=== PATIENT | female | born 1975 | race Asian ===

== ENCOUNTER 2017-10-01 20:28 | Emergency (ER) | payer OTHER, SELFPAY ==
[2017-10-01 20:38] VITALS: BP 115/78; PULSE 84; RESP 20; TEMP 36.5; O2SAT 100; BMI 25.4
[2017-10-01 20:41] VITALS: BP 115/78; PULSE 84; RESP 20; TEMP 36.5; O2SAT 100; BMI 25.4
[2017-10-01] MEDS: PANTOPRAZOLE 40 MG VIAL IV (21:00)
[2017-10-01] MEDS: SODIUM CHLORIDE 0.9% 1,000 ML 1000 ML IV (21:00)
--- NOTE | 2017-10-01 21:02 | DI.US.S_ITS ---
PROCEDURE: US ABDOMEN COMPLETE INDICATIONS: Abdominal pain TECHNIQUE: Real-time scanning was performed of the abdominal and retroperitoneal organs, with image documentation. COMPARISON: None. FINDINGS: Liver: Liver is normal in size and homogeneous in echotexture. Gallbladder: There are multiple mobile gallstones measuring up to 1.5 cm. No gallbladder wall thickening, pericholecystic fluid or sonographic Hernandez's sign. Biliary ducts: Intrahepatic bile ducts are non-dilated. Extrahepatic bile duct caliber measures 4.7 mm. Normal is 6-7 mm or less in diameter, or 10 mm or less post-cholecystectomy. Pancreas: Not seen due to overlying bowel gas. Spleen: Spleen is normal in size and homogeneous in echotexture. Kidneys: Kidneys are normal in size and echotexture. Right kidney measures 10.5 cm long; left kidney measures 8.9 cm long. No hydronephrosis or nephrolithiasis. No solid masses. Aorta: Visualized aorta is normal in caliber at less than 3 cm. Iliacs: Proximal common iliac arteries are normal in caliber at less than 2.5 cm. IVC: Intrahepatic inferior vena cava is patent. Miscellaneous: No free abdominal fluid. IMPRESSION: 1. Cholelithiasis. No ultrasound findings to suggest acute cholecystitis. 2. Pancreas not seen due to overlying bowel gas. Dictated by: Tim Dodge M.D. on 10/01/2017 at 22:24 Approved by: Tim Dodge M.D. on 10/01/2017 at 22:26
--- NOTE | 2017-10-01 21:05 | ED_ITS ---
HPI - Abdominal Pain General Chief Complaint: Abdominal Pain Stated Complaint: STOMACH PAIN Time Seen by Provider: 10/01/17 20:50 History of Present Illness HPI narrative: Patient is a 42-year-old female who presents with epigastric pain which started around 2 o'clock this afternoon. It has progressively gotten worse. States right in her epigastric area. She had this once before and it went away on its own. Tonight she has tried Pepto-Bismol and some Tums without any relief. She denies any chest pain or shortness of breath. MD complaint: abdominal pain Related Data Previous Rx's Medication Instructions Recorded acyclovir 400 mg PO BID #120 tab 06/01/16 doxycycline hyclate 100 mg PO BID #22 tab 06/01/16 metronidazole [Metrogel Vaginal] 1 appl VAGINAL HS #70 gm 06/01/16 naproxen sodium 550 mg PO TID #21 tab 06/01/16 Allergies Allergy/AdvReac Type Severity Reaction Status Date / Time Penicillins [PENICILLINS] Allergy Unknown Verified 10/01/17 20:41 Review of Systems Review of Systems All systems reviewed & are unremarkable except as noted in HPI and below Constitutional Denies chills, Denies fever(s), Denies lethargy and Denies weakness Cardiovascular Denies chest pain, Denies irregular heart rhythm, Denies lightheadedness, Denies palpitations and Denies orthopnea Gastrointestinal Gastrointestinal: Reports as per HPI, Reports system reviewed and no additional complaints, except as docu and Reports abdominal pain (Epigastric pain) Musculoskeletal Denies back pain, Denies muscle weakness, Denies numbness and Denies tingling Neurologic Denies numbness, Denies tingling and Denies weakness Endocrine Denies palpitations [facility] Surgical History Status post dilation and curettage (06/01/14) Status post hysteroscopy (06/01/14) Status post laparoscopy (06/01/14) Social History Smoking Status: Never smoker Exam Initial Vital Signs Initial Vital Signs: Vital Signs Temperature 97.7 F 10/01/17 20:38 Pulse Rate 84 10/01/17 20:38 Respiratory Rate 20 10/01/17 20:38 Blood Pressure 115/78 10/01/17 20:38 Pulse Oximetry 100 10/01/17 20:38 Const General: cooperative, healthy appearing and acute distress (Appears in pain holding epigastric area) HENKY Head: normal to inspection Resp Effort & Inspection: normal respiratory effort, able to speak in complete sentences, no respiratory distress and no use of accessory muscles Auscultation: clear to auscultation bilaterally, no rales, no rhonchi and no wheezes Cardio Rate: regular rate Rhythm: regular rhythm Heart Sounds: no click, no gallops, no murmurs and no rubs Pulses: normal peripheral pulses GI Palpation: soft and tender (Epigastric area and mild right upper quadrant pain) Auscultation: normal bowel sounds Skin General: no rashes or lesions noted, No jaundice and No petechiae Neuro General: alert, oriented x3, gait normal and no focal motor deficits Speech: speech normal Course Orders Ordered: ED Orders 10/01/17 21:00 Comprehensive Metabolic Panel Stat Lipase Stat Troponin with CK Cardiac Panel Stat 10/01/17 21:02 US abdomen complete Stat 10/01/17 21:40 Complete Blood Count AUTO DIFF Stat Discontinued Medications Sodium Chloride (Normal Saline 0.9%) 1,000 mls @ 1,000 mls/hr IV CONT REGAN Last Infusion: 10/01/17 22:28 Dose: 1,000 mls/hr Admin: 10/01/17 21:00 Dose: 1,000 mls/hr Ketorolac Tromethamine (Toradol) 30 mg IV NOW ONE Stop: 10/01/17 21:27 Last Admin: 10/01/17 21:36 Dose: 30 mg Pantoprazole Sodium (Protonix) 40 mg IV NOW ONE Stop: 10/01/17 20:53 Last Admin: 10/01/17 21:00 Dose: 40 mg Vital Signs - 8 hr 10/01/17 20:38 10/01/17 20:41 10/01/17 21:30 Temperature 97.7 F 97.7 F Pulse Rate 84 84 70 Respiratory Rate 20 20 Blood Pressure 115/78 115/78 Blood Pressure [Right Arm] 117/64 Pulse Oximetry 100 100 100 10/01/17 22:30 Temperature Pulse Rate 83 Respiratory Rate Blood Pressure Blood Pressure [Right Arm] 94/50 L Pulse Oximetry 100 MDM - Abdominal Pain Lab Data Attestation: I reviewed the patient's lab results. Result diagrams: 10/01/17 21:40 10/01/17 21:00 Lab Results 10/01/17 10/01/17 10/01/17 Range/Units 21:00 21:00 21:40 WBC 12.4 H (4.5-11.0) X10^3/uL RBC 4.48 (4.0-5.2) X10^6/uL Hgb 12.2 (12.0-16.0) g/dL Hct 37.7 (36-46) % MCV 84.3 (80-100) fL MCH 27.3 (26-34) PG MCHC 32.4 (30-36) % RDW 15.4 H (11.6-14.8) % Plt Count 258 (150-400) X10^3/uL Neut % (Auto) 76.3 H (50-75) % Lymph % (Auto) 16.7 L (25-40) % [place] % (Auto) 4.5 (3-14) % Eos % (Auto) 1.9 L (2-4) % Baso % (Auto) 0.6 (0-2) % Neut # (Auto) 9500 H (9459-2530) /uL Sodium 139 (137-145) mmol/L Potassium 3.7 (3.4-5.1) mmol/L Chloride 101 (98-107) mmol/L Carbon Dioxide 25 (22-32) mmol/L BUN 13 (7-17) mg/dL Creatinine 0.50 L (0.52-1.04) mg/dL Estimated GFR > 60.0 (>60) mL/min BUN/Creatinine Ratio 26.0 H (6-22) Glucose 96 (70-100) mg/dL Calcium 9.3 (8.4-10.2) mg/dL Total Bilirubin 0.3 (0.2-1.3) mg/dL AST 22 (14-36) IU/L ALT 24 (9-52) IU/L Alkaline Phosphatase 81 (38-126) U/L Total Creatine Kinase 51 (30-135) U/L Troponin I < 0.012 (0.01-0.034) ng/mL Total Protein 7.7 (6.3-8.2) g/dL Albumin 4.2 (3.5-5.0) g/dL Globulin 3.5 (1.7-4.1) g/dL Albumin/Globulin Ratio 1.2 (1.0-2.8) Lipase 234 (23-300) U/L Imaging Data US - abdomen: Radiologist's impression: PROCEDURE: US ABDOMEN COMPLETE INDICATIONS: Abdominal pain TECHNIQUE: Real-time scanning was performed of the abdominal and retroperitoneal organs, with image documentation. COMPARISON: None. FINDINGS: Liver: Liver is normal in size and homogeneous in echotexture. Gallbladder: There are multiple mobile gallstones measuring up to 1.5 cm. No gallbladder wall thickening, pericholecystic fluid or sonographic Hernandez's sign. Biliary ducts: Intrahepatic bile ducts are non-dilated. Extrahepatic bile duct caliber measures 4.7 mm. Normal is 6-7 mm or less in diameter, or 10 mm or less post-cholecystectomy. Pancreas: Not seen due to overlying bowel gas. Spleen: Spleen is normal in size and homogeneous in echotexture. Kidneys: Kidneys are normal in size and echotexture. Right kidney measures 10.5 cm long; left kidney measures 8.9 cm long. No hydronephrosis or nephrolithiasis. No solid masses. Aorta: Visualized aorta is normal in caliber at less than 3 cm. Iliacs: Proximal common iliac arteries are normal in caliber at less than 2.5 cm. IVC: Intrahepatic inferior vena cava is patent. Miscellaneous: No free abdominal fluid. IMPRESSION: 1. Cholelithiasis. No ultrasound findings to suggest acute cholecystitis. 2. Pancreas not seen due to overlying bowel gas. Dictated by: Tim Dodge M.D. on 10/01/2017 at 22:24 Approved by: Tim Dodge M.D. on 10/01/2017 at 22:26 ECG Data Attestation: I personally reviewed and interpreted this ECG as follows: Prior ECG tracings: not available for review Interpretation: Normal sinus rhythm rate [address] changes artifact noted MDM Narrative Medical decision making narrative: Patient is doing much better after Toradol and Protonix. She has mild leukocytosis but no elevated bilirubin liver enzymes. She is noted to have multiple gallstones however no thickening of the wall or signs of common bile duct obstruction. Discussed have she will likely require surgery however not emergent at this time. Discussed with and patient warning signs and when to return to the ED. Discharge Plan Departure Patient Disposition: Home, Self-Care Clinical Impression: Cholelithiasis Discharge Date/Time: 10/01/17 23:00 Interventions: ED Discharge Assessment Last Done: 10/01/17 23:16 Instructions: DI for Gallstones Activity Restrictions/Additional Instructions: *You have been diagnosed with gallstones *What to do: You're gallbladder will likely require elective surgery at this time no emergent surgery needed. *Continue to take medications as directed *Follow up with your primary care provider in 2-3 days, call surgery Wednesday to schedule follow up appointment in 1-2 weeks *Return to ER if you should have increasing pain, fever or any new, worsening or concerning symptoms Prescriptions: No Action doxycycline hyclate 100 MG capsule 100 mg PO BID Qty: 22 RF: 1 metronidazole [Metrogel Vaginal] 0.75 % gel 1 appl Vaginal HS Qty: 70 RF: 0 acyclovir 400 MG tablet 400 mg PO BID Qty: 120 RF: 3 naproxen sodium 550 MG tablet 550 mg PO TID Qty: 21 RF: 3 Referrals: [facility] [Provider Group] Carley Dey MD [Physician] -
[2017-10-01 21:29] LABS: Creatine Kinase 51 U/L (30-135)
[2017-10-01 21:30] VITALS: BP 117/64; PULSE 70; O2SAT 100
[2017-10-01 21:35] LABS: Alanine Aminotransferase 24 IU/L (9-52); Albumin 4.2 g/dL (3.5-5.0); Albumin Globulin Ratio 1.2 (1.0-2.8); Alkaline Phosphatase 81 U/L (38-126); Aspartate Aminotransferase 22 IU/L (14-36); Bilirubin Total 0.3 mg/dL (0.2-1.3); Blood Urea Nitrogen 13 mg/dL (7-17); Calcium 9.3 mg/dL (8.4-10.2); Carbon Dioxide 25 mmol/L (22-32); Chloride 101 mmol/L (98-107); Estimated Glomerular Filt Rate > 60.0 mL/min (>60); Globulin 3.5 g/dL (1.7-4.1); Glucose 96 mg/dL (70-100); HEMOLYSIS < 15 (0-50); Lipase 234 U/L (23-300); Potassium 3.7 mmol/L (3.4-5.1); Sodium 139 mmol/L (137-145); Total Protein 7.7 g/dL (6.3-8.2)
[2017-10-01] MEDS: KETOROLAC 60 MG/2 ML VIAL 30 MG IV (21:36)
[2017-10-01 21:45] LABS: Troponin I < 0.012 ng/mL (0.01-0.034)
[2017-10-01 21:49] LABS: Add Manual Diff / Slide Review NO; Basophils Percent Auto 0.6 % (0-2); Eosinophils Percent Auto 1.9 % (2-4); Hematocrit 37.7 % (36-46); Hemoglobin 12.2 g/dL (12.0-16.0); Lymphocytes Percent Auto 16.7 % (25-40); Mean Corpuscular HGB Conc 32.4 % (30-36); Mean Corpuscular Hemoglobin 27.3 PG (26-34); Mean Corpuscular Volume 84.3 fL (80-100); Monocytes Percent Auto 4.5 % (3-14); Neutrophils Absolute Auto 9500 /uL (3000-5900); Neutrophils Percent Auto 76.3 % (50-75); Platelet Count 258 X10^3/uL (150-400); Red Blood Cell Count 4.48 X10^6/uL (4.0-5.2); Red Cell Distribution Width 15.4 % (11.6-14.8); White Blood Cell Count 12.4 X10^3/uL (4.5-11.0)
[2017-10-01 22:30] VITALS: BP 94/50; PULSE 83; O2SAT 100
== END 2017-10-01 23:00 | disposition home or self-care (01) ==
PROVIDERS: Emergency Provider Emergency Medicine
DX: K80.20 Calculus of gallbladder without cholecystitis without obstruction (principal)
CPT/HCPCS: 36591; 76700; 80053; 81003; 81025; 82550; 82553; 83690; 84484; 85025; 93005; 93010; 96361; 96374; 96375; 99283; 99285; C9113; J1885

== ENCOUNTER 2017-11-02 11:02 | Day surgery (SDC) | payer OTHER, SELFPAY ==
[2017-10-19 12:41] VITALS: BMI 25.5
[2017-11-02] VITALS (14 sets, daily range): BP systolic 100–118; BP diastolic 57–83; PULSE 82–107; RESP 10–20; TEMP 35.9–36.7; O2SAT 96–100; BMI 25.5
--- NOTE | 2017-11-02 | PATH_ITS ---
[facility] Accession Number: [id number] . 01 Material submitted: . GALLBLADDER AND CONTENTS . 02 Diagnosis: Gallbladder and Contents, Laparoscopic Cholecystectomy: Chronic cholecystitis, cholesterolosis, and cholelithiasis. MRV/11/04/2017 . 02 Electronically signed: . Anabela Lopez MD, Pathologist NPI- [id number] . 01 Gross description: . Received in formalin, labeled gallbladder and contents, is an intact gallbladder (length-6.6 cm, diameter-2.8 cm) with blue-green smooth shiny serosa and patent cystic duct. No lymph nodes are identified. The lumen contains dark green viscous bile and multiple bright yellow, bosselated, hard calculi (2.5 x 1.8 x 1.3 cm in aggregate) with clear colorless crystalline cut surfaces. The mucosa is green, smooth and flat. The wall is up to 0.1 cm thick. No nodules, masses or lesions are identified. Section code: (A1) cystic duct resection margin and two serial sections from the body; (A2) two longitudinal sections from the fundus. ([id number]) /MRV . 02 Pathologist provided ICD-10: K81.1 . 02 CPT . 062917 Performed at: 01 [facility] [address], [place], [place] [id number] MD Gordon Flores MD Phone: [phone] Performed at: 02 [facility] [address] [place], [place] [id number] MD Cameron Howard MD Phone: [phone]
--- NOTE | 2017-11-02 12:12 | PM.PREOP ---
Pre-operative Note Interval Note Pre-op Check: Yes History & Physical Reviewed by Physician and Yes Exam Performed Changes: No H&P completed within 30 days and has changed as indicated here:: Patient seen and examined in the preoperative area. History and physical examination has not changed since that documented on October 11, 2017. Proceed with laparoscopic cholecystectomy today as planned.
[2017-11-02] MEDS: CLINDAMYCIN 900 MG/50 ML PIGGYBACK 50 MG IV (12:40)
[2017-11-02] MEDS: BUPIVACAINE 0.5% (PF) VIAL 30 ML INJ (13:06)
[2017-11-02] MEDS: LIDOCAINE 1% W/EPI INJ 20 ML INJ (13:07)
--- NOTE | 2017-11-02 13:14 | SUR.OPER ---
to or from opd via gurney, transfered to or table per self Supine on padded OR bed, head on pillow, safety belt at thigh, . both arms secured on padded arm oard <90 degrees abduction. Legs uncrossed. Tape over blanket to secure lower legs.
--- NOTE | 2017-11-02 14:14 | PM.OP.1 ---
Operative Date/Time/Diagnoses Date of procedure: 11/02/17 Time of procedure: 14:14 Pre-op diagnosis: Symptomatic cholelithiasis Post-op diagnosis: same Procedure & Clinicians Procedure: 1. Laparoscopic cholecystectomy Same procedure as scheduled: Yes Indications: 42-year-old female who presented with recurring epigastric and right upper quadrant abdominal pain. Examination and evaluation were consistent with symptomatic cholelithiasis. She was recommended to undergo laparoscopic cholecystectomy. Surgeon: Jerome Rios Click Yes if Unassisted: Yes Anesthesia Type: General Operative Notes Findings: 1. Mildly thickened and edematous gallbladder wall consistent with chronic cholecystitis 2. He is between the duodenum, omentum, and infundibulum of the gallbladder consistent with chronic cholecystitis 3. Large gallstones 4. Otherwise normal stomach, liver, colon, and small bowel within the limits of laparoscopic visualization Closure Type: primary Specimen(s): other (Gallbladder) Estimated Blood Loss (mL): 25 Procedure in detail: After obtaining informed consent the patient was brought to the operating room placed supine on the table. After satisfactory induction of anesthesia the abdomen was prepped and draped in usual sterile fashion. A SCOAP time-out was performed per standard protocol. A 1-1 mixture 1% lidocaine with 100,000 epinephrine 0.5% plain Marcaine was injected in the skin and subcutaneous tissue at the superior aspect of the umbilicus for postoperative analgesia. A vertical midline incision was created for distance of approximately 2 cm at the superior aspect of the umbilicus with a 11 scalpel blade. Blunt dissection revealed the rectus fascia which was divided in the midline with a 11. Scalpel blade. Edges of the fascia were secured bilaterally with Emma clamps and elevated into the operative field. Two individual 0 Vicryl interrupted sutures were then placed superiorly and inferiorly through the fascia to secure it for later closure. Under direct visualization peritoneum was entered with a Gely clamp followed by a blunt 12 mm Oliveira trocar. Carbon dioxide pneumoperitoneum was created and the abdomen was visually explored with a 30 degree 5 mm laparoscoped. Findings are as above. Patient was placed in reverse Trendelenburg position and appropriate site was chosen for placement of a 5 mm epigastric trocar. Area was anesthetized with local anesthesia followed by a small skin incision with a 11 scalpel blade. Under direct laparoscopic visualization the trocar was inserted in the epigastric region to the right of the falciform ligament. In similar fashion to individual 5 mm trocars were placed in the right lateral abdomen. Fundus of the gallbladder was secured with a ratcheted grasper and retracted superiorly and medially over the liver edge. Meticulous blunt dissection using a Karo grasper and [place] dissector was employed to skeletonize the infundibulum of the gallbladder and meticulously divide the adhesions between the gallbladder and adjacent structures, including the duodenum. Great care was taken to avoid injury to those structures. Further dissection in the triangle of Calot revealed the cystic artery and cystic duct. These structures were completely dissected in their junction with the gallbladder clearly visualized. The critical view of the liver bed through the avascular plane was clearly achieved as well. Three clips were placed proximally on the cystic duct and 1 at the junction with the gallbladder. Two clips were placed proximally on the cystic artery and 1 distally. Both structures were then divided with laparoscopic scissors. Monopolar cautery was used to remove the gallbladder from the hepatic bed. Gallbladder was retrieved through the umbilical incision and sent for permanent section. Hemostasis was achieved with monopolar cautery on the liver bed. Previously placed clips were clearly visualized and noted to be in good position without evidence of any hemorrhage or bile leak. Right upper quadrant was again irrigated with copious amount sterile saline solution and suctioned until clear. Liver bed was noted to be hemostatic with no evidence of bile leak. Patient was returned to supine position and further irrigation was performed. Irrigant returned clear with suction. Instruments and trocars were then removed under direct visualization and hemostasis was verified. Carbon dioxide was evacuated. Fascia at the umbilical site was closed with previously placed 0 Vicryl suture. Skin at all 4 incisions was then closed in a running subcuticular fashion with 4 0 Monocryl suture. Dermal adhesive was applied. Anesthesia was reversed and patient extubated in the operating room. She was taken recovery in stable condition. Complications: none Condition: stable Disposition: PACU Plan for aftercare: 1. Discharged home 2. Follow up in surgery Clinic in 2 weeks
--- NOTE | 2017-11-02 14:21 | SUR.PHASEI ---
AIRWAY MANAGED WITH MANUAL SUPPORT INITIALLY, ORAL AIRWAY PLACED AT 1442 D\T PT DESAT TO 84. O2 SAT IMPRVED TO 100% WITH ORAL AIRWAY AND 4L02 VIA NC.
--- NOTE | 2017-11-02 14:32 | SUR.PHASEI ---
ORAL AIRWAY REMOVED AT 1428- PAITIENT ABLE TO KEEP AIRWAY PATENT. 100% O2 SAT AT 2L. LUNG SOUNDS CLEAR AND EQUAL THROUGHOUT,
[2017-11-02] MEDS: fentaNYL 100 MCG/2 ML INJ 50 MCG IV ×3 (14:36→14:49)
[2017-11-02] MEDS: ONDANSETRON 4 MG/2 ML INJ IV (14:55)
[2017-11-02] MEDS: METOCLOPRAMIDE 10 MG/2 ML INJ IV (15:45)
--- NOTE | 2017-11-02 16:54 | SUR.PHASEII ---
D/C INSTRUCTIONS REVIEWED WITH PT AND FAMILY WITH VERBALIZED UNDERSTANDING. PT AND FAMILY MEMBER EXPRESSED DESIRE AND READINESS TO GO HOME. PT TOLERATING SMALL SIPS OF WATER, ABDOMEN SOFT AND NON DISTENDED WITH OP SITES CLEAN AND DRY. VSS
== END 2017-11-02 16:45 | disposition home or self-care (01) ==
PROVIDERS: PCP Internal Medicine; Visit Provider Surgery
PROC: 0FT44ZZ Resection of Gallbladder, Percutaneous Endoscopic Approach (ICD-10-PCS; CPT 47562; principal; 2017-11-02 12:15)
DX: K80.10 Calculus of gallbladder with chronic cholecystitis without obstruction (principal); K21.9 Gastro-esophageal reflux disease without esophagitis
CPT/HCPCS: 47562; J1100; J1885; J2250; J2405; J2704; J2765; J3010

== ENCOUNTER → 2018-02-11 08:22 | Outpatient (CLI) | payer OTHER, SELFPAY ==
[2018-02-11 11:43] LABS: Adenovirus F 40/41 Not Detected (Not Detect); Astrovirus Not Detected (Not Detect); Campylobacter Not Detected (Not Detect); Clostridium difficile toxin AB Not Detected (Not Detect); Cryptosporidium Not Detected (Not Detect); Cyclospora cayetanensis Not Detected (Not Detect); Entamoeba histolytica Not Detected (Not Detect); Enteroaggregative E.coli Not Detected (Not Detect); Enteropathogenic E.coli Not Detected (Not Detect); Enterotoxigenic E.coli It/st Not Detected (Not Detect); Giardia lamblia Not Detected (Not Detect); Norovirus GI/GII Not Detected (Not Detect); Plesiomonsa shigelloides Not Detected (Not Detect); Rotavirus A Not Detected (Not Detect); Salmonella Not Detected (Not Detect); Sapovirus Not Detected (Not Detect); Shiga-like toxin-prod E.coli Not Detected (Not Detect); Shigella/Enteroinvasive E.coli Not Detected (Not Detect); Vibrio Not Detected (Not Detect); Vibrio cholerae Not Detected (Not Detect); Yersinia enterocolitica Not Detected (Not Detect)
== END ==
PROVIDERS: Family Provider Internal Medicine; PCP Internal Medicine; Visit Provider Student in an Organized Health Care Education/Training Program
DX: R19.7 Diarrhea, unspecified (principal)
CPT/HCPCS: 87507

== ENCOUNTER 2018-10-12 09:40 | Day surgery (SDC) | payer OTHER, SELFPAY ==
[2018-10-12] VITALS (8 sets, daily range): BP systolic 94–121; BP diastolic 59–80; PULSE 73–95; RESP 13–19; TEMP 36.3–36.9; O2SAT 94–100; BMI 24.7
--- NOTE | 2018-10-12 | PATH_ITS ---
[facility] Accession Number: [id number] . 01 Material submitted: . esophagus - ESOPHAGEAL BIOPSY . 01 Clinical history: . R/O EOE . 02 Diagnosis: Esophagus, Biopsy: Squamous mucosa with no diagnostic abnormality. Intraepithelial eosinophils are not increased. Negative for dysplasia and malignancy. [facility]/10/14/2018 . 02 Electronically signed: . Ivone Melendez MD, Pathologist NPI- [id number] . 01 Gross description: . ESOPHAGEAL BIOPSY: Received in formalin are 3 fragment(s) of martino, soft tissue measuring 0.1 x 0.1 x 0.1 cm which are entirely submitted and submitted entirely in 1 cassette(s) /DMC /DMC . 02 Pathologist provided ICD-10: R10.13 . 02 CPT . 892918 Performed at: 01 [facility] [address] [id number] MD Gordon Flores MD Phone: [phone] Performed at: 02 [facility] [address] [place], [place] [id number] MD Ivone Melendez MD Phone: [phone]
--- NOTE | 2018-10-12 09:50 | PM.HP.1 ---
History of Present Illness Date Patient Seen: 10/12/18 Time Patient Seen: 09:57 Chief complaint: [id number] Narrative: Patient is a 43 year old female who presented for further evaluation of difficulty swallowing. She was last seen in the office on September 26, [address] Novak. She denies any changes to her symptoms since that time. She denies any new changes to her medications for medical history, or family history since that time. Patient History Medical History Ankle pain (Acute ~1989) Cholelithiasis (Acute) Environmental allergies (Acute) Gastroesophageal reflux disease (Acute) Herpes simplex virus (HSV) infection (Acute) History of blood clots (Acute ~2015) History of headache (Acute ~1999) History of hysteroscopy (Acute ~2014) Infertility (Acute) Shoulder pain (Acute ~2005) Varicose veins of both lower extremities (Acute) Varicose veins of left lower extremity (Acute) Surgical History H/O laparoscopy (Acute ~2014) History of D&C (Acute) Status post dilation and curettage (06/01/14) Status post hysteroscopy (06/01/14) Status post laparoscopy (06/01/14) Family History Other Cholelithiasis Diabetes mellitus Social History household members: spouse Smoking Status: Never smoker Family & Social History Social History: household members spouse Tobacco & Substance use: Smoking Status Never smoker Substance Use Type does not use Meds Home Medications Medication Instructions Recorded Confirmed Type metronidazole [Metrogel Vaginal] 1 appl VAGINAL HS #70 gm 06/01/16 10/19/17 Rx calcium carbonate 200 mg calcium 200 mg PO BID tab 10/11/17 10/12/18 History (500 mg) chewable tablet ibuprofen 20 mg PRN 11/02/17 History acyclovir 200 mg PO BID 10/12/18 10/12/18 History Allergies Allergy/AdvReac Type Severity Reaction Status Date / Time Penicillins [PENICILLINS] Allergy Unknown Verified 11/02/17 11:25 Review of Systems Review of Systems All systems reviewed & are unremarkable except as noted in HPI and below Exam Const General: cooperative, healthy appearing, comfortable and well developed Resp Effort & Inspection: normal respiratory effort Auscultation: clear to auscultation bilaterally Cardio Rate: regular rate Rhythm: regular rhythm Heart Sounds: S1 normal and S2 normal GI Palpation: soft and no hepatosplenomegaly Auscultation: normal bowel sounds Assessment & Plan Assessment & Plan narrative: 1. Dysphagia -will perform EGD with possible dilation today Regarding the procedure(s), the risks and potential complications, benefits, and alternatives (including not doing the procedure) were discussed with the patient. The risks include but are not limited to bleeding, splenic injury, infection, perforation which may require surgical intervention, missed lesions, and adverse reactions to sedative medicines. After a question and answer period, the patient agreed to proceed with the procedure(s) and gives informed consent.
[2018-10-12] MEDS: SODIUM CHLORIDE 0.9% 1,000 ML 70 ML IV (10:01)
[2018-10-12] MEDS: MIDAZOLAM 5 MG/5 ML VIAL IV (10:34)
[2018-10-12] MEDS: fentaNYL 250 MCG/5 ML INJ IV (10:35)
--- NOTE | 2018-10-12 10:37 | PM.OP.ENDO ---
Operative Date/Time/Diagnoses Date of procedure: 10/12/18 Time of procedure: 10:15 Pre-op diagnosis: Dysphagia Procedure Notes Procedure in detail: Surgeon: Trinity Gonzalez DO Procedure: Esophagogastroduodenoscopy with dilation of esophageal stricture and biopsy to rule out EOE Preoperative diagnosis: Dysphagia Postoperative diagnosis: Esophageal stricture at 36 cm, rule out eosinophilic esophagitis, small hiatal hernia, otherwise normal-appearing stomach and duodenum Medications: Conscious sedation using 5 mg IV of Midazolam and 125 mcg IV of Fentanyl Preanesthesia Assessment An H and P was performed/updated and the Px?s ASA class is 2. The procedure was discussed in detail with the patient. The potential risks and complications including infection, bleeding, missed lesions, perforation, need for surgery in case of perforation, prolonged hospital stay, and were explained. A brief question and answer period was allotted and once all questions were answered, informed consent was obtained. The patient was brought back to the procedure room and placed on standard monitoring. The patient?s vital signs were monitored continuously throughout the entire procedure. Prior to starting, a timeout was performed to confirm the patient?s identity, allergies, medications, and procedure. Procedure in detail The patient was placed in left lateral decubitus position and a bite block was inserted. The tip of the upper endoscope was placed into the mouth and advanced without difficulty under direct visualization into the esophagus. Esophagus: Changes of possible eosinophilic esophagitis including longitudinal furrows, biopsied for eosinophilic esophagitis. Esophageal stricture at 36 cm dilated with 12-15 mm balloon with mild improvement after dilation. Stomach: Small hiatal hernia, otherwise normal appearing stomach Duodenum: Normal-appearing duodenum The patient tolerated the procedure well and will be brought back to the recovery area to be discharged once criteria are met. The total physician intraservice time was 21min. Complications There were no complications and estimated blood loss was minimal. Recommendations: Resume previous diet Continue outPx medications Follow up pathology results Office follow up if persistent symptoms of dysphagia. An emergency contact number was given to the patient for any complications related to the procedure Sedation minutes: 21
[2018-10-12] MEDS: ONDANSETRON 4 MG/2 ML INJ IV (11:26)
--- NOTE | 2018-10-12 11:27 | SUR.PHASEII ---
pt arrived to phase II via stretcher. pt requesting to use bathroom upon arrival to phase II. pt ambulated to restroom without any difficultly. pt c/o feeling nausated after getting back into stretcher from bathroom. received verbal order from MD for iv zofran. IV zofran given per MD order. pt at bedside and pt resting at this time. bed in lowest position and call light given to pt.
== END 2018-10-12 12:18 | disposition home or self-care (01) ==
PROVIDERS: Family Provider Internal Medicine; PCP Internal Medicine; Visit Provider Student in an Organized Health Care Education/Training Program
PROC: 0DJ08ZZ Inspection of Upper Intestinal Tract, Via Natural or Artificial Opening Endoscopic (ICD-10-PCS; CPT 43235; principal; 2018-10-12 10:30)
DX: R13.14 Dysphagia, pharyngoesophageal phase (principal); K44.9 Diaphragmatic hernia without obstruction or gangrene
CPT/HCPCS: 43249; 43239; J2250; J2405; J3010

== ENCOUNTER → 2018-12-05 10:21 | Outpatient (CLI) | payer OTHER, SELFPAY ==
[2018-12-05 11:10] LABS: Add Manual Diff / Slide Review NO; Basophils Absolute Auto 0 /uL (0-100); Basophils Percent Auto 0.6 % (0-2); Eosinophils Absolute Auto 100 /uL (0-450); Eosinophils Percent Auto 2.2 % (2-4); Hematocrit 37.3 % (36-46); Lymphocytes Absolute Auto 1800 /uL (1100-4500); Lymphocytes Percent Auto 32.7 % (25-40); Mean Corpuscular HGB Conc 32.2 % (30-36); Mean Corpuscular Hemoglobin 26.9 PG (26-34); Mean Corpuscular Volume 83.6 fL (80-100); Monocytes Absolute Auto 300 /uL (0-900); Monocytes Percent Auto 5.5 % (3-14); Neutrophils Absolute Auto 3200 /uL (1500-7000); Platelet Count 264 X10^3/uL (150-400); Red Blood Cell Count 4.46 X10^6/uL (4.0-5.2); Red Cell Distribution Width 15.3 % (11.6-14.8); White Blood Cell Count 5.5 X10^3/uL (4.5-11.0)
[2018-12-05 12:44] LABS: Thyroid Stimulating Hormone 2.31 uIU/mL (0.47-4.68)
[2018-12-05 12:47] LABS: Hepatitis B Surface Antigen NEGATIVE s/c (NEGATIVE)
[2018-12-05 13:02] LABS: HIV 1 and 2 Antibody NEGATIVE (NEGATIVE); Hep C Virus Ab w/Reflex Quant NEGATIVE s/c (NEGATIVE)
== END ==
PROVIDERS: Family Provider Internal Medicine; PCP Internal Medicine; Visit Provider Obstetrics & Gynecology Reproductive Endocrinology
DX: Z00.00 Encounter for general adult medical examination without abnormal findings (principal); Z13.29 Encounter for screening for other suspected endocrine disorder; Z11.59 Encounter for screening for other viral diseases; Z11.3 Encounter for screening for infections with a predominantly sexual mode of transmission; Z11.4 Encounter for screening for human immunodeficiency virus [HIV]
CPT/HCPCS: 36415; 84146; 84443; 85025; 86592; 86703; 86762; 86787; 86803; 87340

== ENCOUNTER → 2018-12-21 10:03 | Outpatient (CLI) | payer OTHER, SELFPAY ==
[2018-12-21 11:37] LABS: Progesterone, Total 6.66 ng/mL
[2018-12-21 11:52] LABS: Estradiol, Total 78.3 pg/mL
[2018-12-21 12:04] LABS: Luteinizing Hormone 6.67 mIU/mL
== END ==
PROVIDERS: PCP Internal Medicine; Visit Provider Obstetrics & Gynecology Reproductive Endocrinology
DX: Z13.29 Encounter for screening for other suspected endocrine disorder (principal)
CPT/HCPCS: 36415; 82670; 83002; 84144

== ENCOUNTER → 2019-02-10 10:30 | Outpatient (CLI) | payer OTHER, SELFPAY ==
[2019-02-10 11:20] LABS: Progesterone, Total 0.61 ng/mL
[2019-02-10 11:36] LABS: Estradiol, Total 112.3 pg/mL
== END ==
PROVIDERS: PCP Internal Medicine; Visit Provider Obstetrics & Gynecology Reproductive Endocrinology
DX: Z31.41 Encounter for fertility testing (principal)
CPT/HCPCS: 36415; 82670; 84144

== ENCOUNTER → 2019-03-03 09:32 | Outpatient (CLI) | payer OTHER, SELFPAY ==
[2019-03-03 10:29] LABS: Progesterone, Total 0.48 ng/mL
[2019-03-03 10:45] LABS: Estradiol, Total 110.2 pg/mL
== END ==
PROVIDERS: PCP Internal Medicine; Visit Provider Obstetrics & Gynecology Reproductive Endocrinology
DX: Z31.41 Encounter for fertility testing (principal)
CPT/HCPCS: 36415; 82670; 84144

== ENCOUNTER → 2019-03-30 09:16 | Outpatient (CLI) | payer OTHER, SELFPAY ==
[2019-03-30 10:22] LABS: HCG Quantitative /Beta subunit 158.26 mIU/mL
== END ==
PROVIDERS: PCP Internal Medicine; Visit Provider Obstetrics & Gynecology Reproductive Endocrinology
DX: Z32.01 Encounter for pregnancy test, result positive (principal)
CPT/HCPCS: 36415; 84702

== ENCOUNTER → 2019-04-03 08:57 | Outpatient (CLI) | payer OTHER, SELFPAY ==
[2019-04-03 09:42] LABS: HCG Quantitative /Beta subunit 423.68 mIU/mL
== END ==
PROVIDERS: PCP Internal Medicine; Visit Provider Obstetrics & Gynecology Reproductive Endocrinology
DX: Z32.01 Encounter for pregnancy test, result positive (principal)
CPT/HCPCS: 36415; 84702

== ENCOUNTER → 2019-05-09 09:48 | Outpatient (CLI) | payer OTHER, SELFPAY ==
[2019-05-09 10:34] LABS: HCG Quantitative /Beta subunit 526.23 mIU/mL
== END ==
PROVIDERS: PCP Internal Medicine; Visit Provider Obstetrics & Gynecology Reproductive Endocrinology
DX: O02.1 Missed abortion (principal)
CPT/HCPCS: 36415; 84702

== ENCOUNTER → 2019-05-16 10:54 | Outpatient (CLI) | payer OTHER, SELFPAY ==
[2019-05-16 11:43] LABS: HCG Quantitative /Beta subunit 60.97 mIU/mL
== END ==
PROVIDERS: PCP Internal Medicine; Referring Provider Obstetrics & Gynecology Reproductive Endocrinology; Visit Provider Obstetrics & Gynecology Reproductive Endocrinology
DX: O02.1 Missed abortion (principal)
CPT/HCPCS: 36415; 84702

== ENCOUNTER → 2019-06-02 12:01 | Outpatient (CLI) | payer OTHER, SELFPAY ==
--- NOTE | 2019-06-02 | DI.RAD.S_ITS ---
PROCEDURE: XR CHEST 2V INDICATIONS: COUGH TECHNIQUE: 2 views of the chest were acquired. COMPARISON: None. FINDINGS: Surgical changes and devices: None. Lungs and pleura: Lungs are clear. No pleural effusions or pneumothorax. Mediastinum: Mediastinal contours are normal. Heart size is normal. Bones and chest wall: No suspicious bony abnormalities. Soft tissues appear unremarkable. IMPRESSION: Normal for age, source of current cough symptoms is not seen. Dictated by: Joaquín Camacho M.D. on 06/02/2019 at 12:48 Approved by: Joaquín Camacho M.D. on 06/02/2019 at 12:48
[2019-06-02 12:41] LABS: Add Manual Diff / Slide Review NO; Basophils Absolute Auto 0 /uL (0-100); Basophils Percent Auto 0.4 % (0-2); Eosinophils Absolute Auto 100 /uL (0-450); Eosinophils Percent Auto 1.1 % (2-4); Hematocrit 40.7 % (36-46); Hemoglobin 13.5 g/dL (12.0-16.0); Lymphocytes Absolute Auto 1700 /uL (1100-4500); Lymphocytes Percent Auto 23.9 % (25-40); Mean Corpuscular HGB Conc 33.3 % (30-36); Mean Corpuscular Hemoglobin 28.3 PG (26-34); Mean Corpuscular Volume 85.1 fL (80-100); Monocytes Absolute Auto 400 /uL (0-900); Neutrophils Absolute Auto 5000 /uL (1500-7000); Neutrophils Percent Auto 69.6 % (50-75); Platelet Count 248 X10^3/uL (150-400); Red Blood Cell Count 4.78 X10^6/uL (4.0-5.2); Red Cell Distribution Width 15.2 % (11.6-14.8); White Blood Cell Count 7.2 X10^3/uL (4.5-11.0)
[2019-06-02 12:55] LABS: Erythrocyte Sedimentation Rate 20 MM/HR (0-20)
[2019-06-02 12:59] LABS: Alanine Aminotransferase 15 IU/L (<35); Albumin 4.2 g/dL (3.5-5.0); Albumin Globulin Ratio 1.1 (1.0-2.8); Alkaline Phosphatase 74 U/L (38-126); Aspartate Aminotransferase 22 IU/L (14-36); BUN Creatinine Ratio 21.7 (6-22); Bilirubin Total 0.3 mg/dL (0.2-1.3); Blood Urea Nitrogen 13 mg/dL (7-17); Calcium 9.1 mg/dL (8.4-10.2); Carbon Dioxide 28 mmol/L (22-32); Chloride 104 mmol/L (98-107); Estimated Glomerular Filt Rate > 60.0 mL/min (>60); Globulin 3.8 g/dL (1.7-4.1); Glucose 86 mg/dL (70-100); HEMOLYSIS < 15 (0-50); Potassium 3.9 mmol/L (3.4-5.1); Sodium 141 mmol/L (137-145)
[2019-06-02 13:03] LABS: C-Reactive Protein Quant < 0.5 mg/dL (<1.0)
== END ==
PROVIDERS: PCP Internal Medicine; Referring Provider Internal Medicine; Visit Provider Internal Medicine
DX: R19.7 Diarrhea, unspecified (principal); R68.83 Chills (without fever); R05 Cough
CPT/HCPCS: 36415; 71046; 80053; 85025; 85651; 86140

== ENCOUNTER → 2019-06-06 09:30 | Outpatient (CLI) | payer OTHER, SELFPAY ==
[2019-06-06 10:46] LABS: Clostridium Difficile Tox PCR Negative for C. diff
== END ==
PROVIDERS: PCP Internal Medicine; Referring Provider Internal Medicine; Visit Provider Internal Medicine
DX: R19.7 Diarrhea, unspecified (principal)
CPT/HCPCS: 87493

== ENCOUNTER → 2019-06-15 18:38 | Outpatient (ROUT) | payer OTHER, SELFPAY ==
[2019-06-15 19:04] LABS: BUN Creatinine Ratio 12.5 (6-22); Blood Urea Nitrogen 10 mg/dL (7-17); Carbon Dioxide 28 mmol/L (22-32); Chloride 103 mmol/L (98-107); Estimated Glomerular Filt Rate > 60.0 mL/min (>60); Glucose 104 mg/dL (70-100); HEMOLYSIS 17 (0-50); Potassium 4.1 mmol/L (3.4-5.1); Sodium 138 mmol/L (137-145)
[2019-06-15 19:34] LABS: TSH w/ Reflex to FT4 1.51 uIU/mL (0.47-4.68)
== END ==
PROVIDERS: PCP Internal Medicine; Visit Provider Internal Medicine
DX: R53.82 Chronic fatigue, unspecified (principal); R19.7 Diarrhea, unspecified
CPT/HCPCS: 80048; 84443

== ENCOUNTER → 2019-06-22 09:06 | Outpatient (CLI) | payer OTHER, SELFPAY ==
[2019-06-22 11:04] LABS: Clostridium Difficile Tox PCR Negative for C. diff
== END ==
PROVIDERS: PCP Internal Medicine; Referring Provider Internal Medicine; Visit Provider Internal Medicine
DX: R19.7 Diarrhea, unspecified (principal)
CPT/HCPCS: 87493

== ENCOUNTER → 2019-06-27 08:28 | Outpatient (CLI) | payer OTHER, SELFPAY ==
[2019-06-27 11:10] LABS: Glucose 103 mg/dL (70-100)
[2019-06-27 12:37] LABS: Hemoglobin A1C% w Est Avg Glu 5.4 % (4.0-6.0)
== END ==
PROVIDERS: PCP Internal Medicine; Referring Provider Internal Medicine; Visit Provider Internal Medicine
DX: R73.01 Impaired fasting glucose (principal)
CPT/HCPCS: 36415; 82947; 83036

== ENCOUNTER → 2020-02-09 19:04 | Outpatient (ROUT) | payer OTHER, SELFPAY ==
[2020-02-09 19:15] LABS: Add Manual Diff / Slide Review NO; Basophils Absolute Auto 0 /uL (0-100); Basophils Percent Auto 0.5 % (0-2); Eosinophils Absolute Auto 100 /uL (0-450); Eosinophils Percent Auto 1.2 % (2-4); Hematocrit 38.8 % (36-46); Hemoglobin 12.6 g/dL (12.0-16.0); Lymphocytes Absolute Auto 1500 /uL (1100-4500); Lymphocytes Percent Auto 33.7 % (25-40); Mean Corpuscular HGB Conc 32.4 % (30-36); Mean Corpuscular Hemoglobin 29.1 PG (26-34); Mean Corpuscular Volume 89.8 fL (80-100); Monocytes Absolute Auto 400 /uL (0-900); Monocytes Percent Auto 8.4 % (3-14); Neutrophils Absolute Auto 2600 /uL (1500-7000); Neutrophils Percent Auto 56.2 % (50-75); Platelet Count 197 X10^3/uL (150-400); Red Blood Cell Count 4.32 X10^6/uL (4.0-5.2); Red Cell Distribution Width 14.2 % (11.6-14.8); White Blood Cell Count 4.6 X10^3/uL (4.5-11.0)
[2020-02-09 19:26] LABS: Alanine Aminotransferase 20 IU/L (<35); Albumin 3.7 g/dL (3.5-5.0); Albumin Globulin Ratio 1.2 (1.0-2.8); Alkaline Phosphatase 58 U/L (38-126); Aspartate Aminotransferase 26 IU/L (14-36); Bilirubin Total 0.4 mg/dL (0.2-1.3); Blood Urea Nitrogen 13 mg/dL (7-17); Calcium 8.7 mg/dL (8.4-10.2); Carbon Dioxide 29 mmol/L (22-32); Chloride 104 mmol/L (98-107); Estimated Glomerular Filt Rate > 60.0 mL/min (>60); Glucose 90 mg/dL (70-100); HEMOLYSIS < 15 (0-50); Potassium 4.3 mmol/L (3.4-5.1); Sodium 138 mmol/L (137-145); Total Protein 6.7 g/dL (6.3-8.2)
[2020-02-09 19:43] LABS: Vitamin D 25 Hydroxy (D3) 36.8 ng/mL (30.0-100.0)
[2020-02-09 19:58] LABS: TSH w/ Reflex to FT4 1.43 uIU/mL (0.47-4.68)
[2020-02-09 20:14] LABS: Vitamin B12 612 pg/mL (239-931)
[2020-02-10 13:06] LABS: Uric Acid 4.3 mg/dL (2.5-6.2)
== END ==
PROVIDERS: PCP Internal Medicine; Visit Provider Internal Medicine
DX: M89.8X9 Other specified disorders of bone, unspecified site (principal); R53.82 Chronic fatigue, unspecified
CPT/HCPCS: 80053; 82306; 82607; 84443; 84550; 85025

== ENCOUNTER → 2020-03-08 16:09 | Outpatient (CLI) | payer OTHER, SELFPAY ==
[2020-03-08 16:28] LABS: Appearance Urine UA CLEAR; Bilirubin Urine UA NEGATIVE (NEGATIVE); Color Urine UA YELLOW; Glucose Urine UA NEGATIVE (Negative); Ketones Urine UA TRACE (NEGATIVE); Leukocyte Esterase Urine UA NEGATIVE (NEGATIVE); Nitrite Urine UA NEGATIVE (Negative); Occult Blood Urine UA 1+ (Negative); Protein Urine UA NEGATIVE (Negative); Specific Gravity Urine UA 1.025 (1.000-1.035); Urobilinogen Urine UA 0.2 E.U./dL (0.2)
[2020-03-08 16:29] LABS: pH Urine UA 5.5 (4.5-8.0)
[2020-03-08 16:37] LABS: Amorphous Sediment Urine 1+; RBC Urine 0-1/HPF (0-5/HPF); Squamous Epithelial Cell Urine 1-5 /HPF (0-5/HPF); WBC Urine 5-10/HPF (0-5/HPF)
[2020-03-08 16:38] LABS: Bacteria Urine Moderate (10-30); Mucus Urine 1+ (Negative)
== END ==
PROVIDERS: PCP Internal Medicine; Referring Provider Internal Medicine; Visit Provider Internal Medicine
DX: R30.0 Dysuria (principal)
CPT/HCPCS: 81001; 87077; 87086

== ENCOUNTER → 2025-02-21 14:41 | Outpatient (CLI) | payer OTHER, SELFPAY ==
[2025-02-21 16:34] LABS: Urine N gonorrhoeae NOT DETECTED
[2025-02-21 16:39] LABS: Urine Chlamydia NOT DETECTED
== END ==
PROVIDERS: Visit Provider Nurse Practitioner Family
DX: R30.0 Dysuria (principal); N89.8 Other specified noninflammatory disorders of vagina
CPT/HCPCS: 87086; 87210; 87491; 87591

== ENCOUNTER → 2025-02-21 15:18 | Outpatient (CLI) | payer OTHER, SELFPAY ==
[2025-02-22 17:43] LABS: Hepatitis B Surface Antigen NEGATIVE s/c (NEGATIVE)
[2025-02-22 18:06] LABS: HIV 1 & 2 Ab/Ag 4th Gen Combo NEGATIVE (NEGATIVE); Hep C Virus Ab w/Reflex Quant NEGATIVE s/c (NEGATIVE)
== END ==
PROVIDERS: Referring Provider Nurse Practitioner Family; Visit Provider Nurse Practitioner Family
DX: N89.8 Other specified noninflammatory disorders of vagina (principal)
CPT/HCPCS: 86592; 86803; 87086; 87210; 87340; 87389; 87491; 87529; 87591

== ENCOUNTER → 2025-02-23 16:56 | Outpatient (CLI) | payer OTHER, SELFPAY | LOC: LAB 16:57 | PROVIDERS: Visit Provider Nurse Practitioner Family | DX: N89.8 Other specified noninflammatory disorders of vagina (principal) | CPT/HCPCS: 87086 ==